=== PATIENT | female | born 1950 | race Caucasian/White ===

== ENCOUNTER 2021-07-03 09:08 | Observation (INO) ==
[2021-07-03] MEDS ORDERED: methylPREDNISolone 125 MG/2 ML VIAL IVP ONE (09:24)
[2021-07-03] MEDS ORDERED: Ipratropium/Albuterol Neb 3 ML IH ONE (09:24)
[2021-07-03] MEDS ORDERED: levoFLOXacin 750 MG/150 ML 750 MG/150 ML BAG IVPB ONE (09:24)
[2021-07-03 09:45] LABS: Basophils # 0.1 K/mcL (0.0-0.2); Basophils % 0.5 %; Eosinophils % 0.3 %; Hematocrit 42.8 % (35.3-44.9); Hemoglobin 13.7 g/dL (11.5-15.4); Immature Granulocytes % 0.5 % (0-4); Lymphocytes # 1.4 K/mcL (0.6-4.6); Lymphocytes % 10.9 %; Mean Corpuscular Hemoglobin 29.1 pg (28.0-33.3); Mean Corpuscular Volume 91.1 fL (83.0-100.0); Mean Platelet Volume 8.9 fL (9.4-12.4); Monocytes # 0.6 K/mcL (0.0-1.3); Monocytes % 4.9 %; Neutrophils # 10.8 K/mcL (1.6-8.9); Platelet Count 293 K/mcL (140-400); Red Cell Distribution Width 14.7 % (11.5-14.5); Segmented Neutrophils % 82.9 %
[2021-07-03 10:03] LABS: Blood Urea Nitrogen 9 mg/dL (8-23); Calcium 9.8 mg/dL (8.6-10.3); Carbon Dioxide 28 mEq/L (23-29); Chloride 102 mEq/L (98-107); Glucose 128 mg/dL (70-105); Osmolality,Calculated 288 (280-300); Potassium 4.1 mEq/L (3.5-5.1); Sodium 139 mEq/L (136-145); Troponin I < 0.03 ng/mL (< 0.04)
[2021-07-03 11:07] LABS: BUN/Creatinine Ratio 14 (6-26); eGFR For African Americans > 60 (> 60); eGFR For Non-African Americans > 60 (> 60)
[2021-07-03] MEDS ORDERED: Naloxone 0.4 MG/ML INJ IVP PRN (12:28)
[2021-07-03] MEDS ORDERED: Ondansetron 4 MG/2 ML VIAL IVP PRN (12:28)
[2021-07-03] MEDS ORDERED: *HR* Heparin 5,000 UNIT/ML VIAL SQ SCH (14:00)
[2021-07-03] MEDS ORDERED: *HR* LORazepam 2 MG/ML VIAL IVP ONE ×2 (14:47→23:16)
[2021-07-03] MEDS: Nicotine 21 MG PATCH.TD24 TD SCH (14:56)
[2021-07-03] MEDS: Ipratropium/Albuterol Neb 3 ML IH SCH ×3 (16:18→23:37)
[2021-07-03] MEDS: MethylPREDNISolone 40 MG/ML VIAL IVP SCH ×2 (17:32→23:39)
[2021-07-03] MEDS ORDERED: Diphenoxylate/Atropine 1 TAB TABLET PO PRN (18:13)
[2021-07-03] MEDS ORDERED: D5% in Water 1,000 ML IVC PRN (18:29)
[2021-07-03] MEDS ORDERED: *HR* Dextrose 50 % in Water (Syg) 50 ML SYRINGE IVP PRN (18:29)
[2021-07-03] MEDS ORDERED: Dextrose Gel 15 GM/37.5 ML TUBE PO PRN ×2 (18:29)
[2021-07-03] MEDS: Insulin LISPRO 300 UNITS/3 ML VIAL SUBQ SCH (18:44)
[2021-07-03 19:46] LABS: Adenovirus Not Detected (Not Detect); Bordetella Pertussis Not Detected (Not Detect); Chlamydophila pneumoniae Not Detected (Not Detect); Coronavirus 229E Not Detected (Not Detect); Coronavirus HKU1 Not Detected (Not Detect); Coronavirus NL63 Not Detected (Not Detect); Coronavirus OC43 Not Detected (Not Detect); Human Metapneumovirus Not Detected (Not Detect); Human Rhinovirus/Enterovirus Not Detected (Not Detect); Influenza A Subtype 2009 H1 Not Detected (Not Detect); Influenza B Not Detected (Not Detect); Mycoplasma pneumoniae Not Detected (Not Detect); Parainfluenza Virus 1 Not Detected (Not Detect); Parainfluenza Virus 2 Not Detected (Not Detect); Parainfluenza Virus 3 Not Detected (Not Detect); Parainfluenza Virus 4 DETECTED (Not Detect); Respiratory Syncytial Virus Not Detected (Not Detect); SARS-CoV-2 Not Detected (Not Detect)
[2021-07-03] MEDS: Acetaminophen 325 MG TABLET PO PRN (19:46)
[2021-07-03] MEDS: Budesonide/Formoterol 160/4.5 1 PUFF INH IH SCH (20:50)
[2021-07-04 03:23] LABS: Basophils % 0.2 %; Hematocrit 39.8 % (35.3-44.9); Hemoglobin 12.7 g/dL (11.5-15.4); Immature Granulocytes % 0.4 % (0-4); Lymphocytes # 0.8 K/mcL (0.6-4.6); Lymphocytes % 7.7 %; Mean Corpuscular HGB Conc 31.9 g/dL (31.6-35.5); Mean Corpuscular Hemoglobin 29.1 pg (28.0-33.3); Mean Corpuscular Volume 91.1 fL (83.0-100.0); Mean Platelet Volume 9.3 fL (9.4-12.4); Monocytes # 0.5 K/mcL (0.0-1.3); Monocytes % 4.8 %; Neutrophils # 8.5 K/mcL (1.6-8.9); Platelet Count 308 K/mcL (140-400); Red Blood Count 4.37 M/mcL (3.82-4.97); Red Cell Distribution Width 14.6 % (11.5-14.5); Segmented Neutrophils % 86.9 %; White Blood Count 9.7 K/mcL (4.3-11.1)
[2021-07-04 03:40] LABS: BUN/Creatinine Ratio 13 (6-26); Blood Urea Nitrogen 8 mg/dL (8-23); Calcium 9.3 mg/dL (8.6-10.3); Carbon Dioxide 24 mEq/L (23-29); Chloride 103 mEq/L (98-107); Glucose 179 mg/dL (70-105); Magnesium 2.4 mg/dL (1.6-2.6); Osmolality,Calculated 285 (280-300); Potassium 4.3 mEq/L (3.5-5.1); Sodium 136 mEq/L (136-145); eGFR For African Americans > 60 (> 60); eGFR For Non-African Americans > 60 (> 60)
[2021-07-04] MEDS: Ipratropium/Albuterol Neb 3 ML IH SCH ×4 (03:50→15:18)
[2021-07-04] MEDS: Acetaminophen 325 MG TABLET PO PRN ×2 (04:06→14:32)
[2021-07-04 05:52] LABS: Estimated Average Glucose 108 mg/dl; Hemoglobin A1C 5.4 %
[2021-07-04] MEDS ORDERED: *HR* Enoxaparin 40 MG/0.4 ML SYRINGE SQ SCH (06:00)
[2021-07-04] MEDS: MethylPREDNISolone 40 MG/ML VIAL IVP SCH ×2 (06:17→11:50)
[2021-07-04] MEDS: Budesonide/Formoterol 160/4.5 1 PUFF INH IH SCH (07:47)
[2021-07-04] MEDS ORDERED: Benzonatate 100 MG CAPSULE PO PRN (08:12)
[2021-07-04] MEDS: Insulin LISPRO 300 UNITS/3 ML VIAL SUBQ SCH ×2 (09:26→12:24)
[2021-07-04] MEDS: Nicotine 21 MG PATCH.TD24 TD SCH (09:26)
[2021-07-04] MEDS ORDERED: Azithromycin 250 MG TABLET PO SCH (11:15)
[2021-07-04 15:02] VITALS: BP 143/84; PULSE 85; TEMP 98
[2021-07-04 17:26] VITALS: O2SAT 91
== END 2021-07-04 16:46 | disposition home or self-care (01) ==
LOC: EMEROOARM 09:08 → 3BNU 09:08
PROVIDERS: ADMIT Hospitalist; ATTEND Hospitalist